=== PATIENT | male | born 1985 | race Caucasian/White ===

== ENCOUNTER 2025-11-23 16:47 | Emergency (ER) | payer OTHER ==
[~2025-11-23] VITALS: Ht 162.6 cm; Wt 84.0 kg
[2025-11-23 17:19] LABS: BASOPHILS 0.4 % (0.2-1.2); EOSINOPHILS 0.6 % (0.8-7.0); LYMPHOCYTES 10.1 % (21.8-53.1); MCH 28.4 PG (25.7-32.2); MCHC 33.5 g/dL (32.3-36.5); MCV 84.6 fL (79.0-92.2); MONOCYTES 7.1 % (5.3-12.2); NEUTROPHILS 81.4 % (34.0-67.9); RBC 5.78 M/uL (4.63-6.08)
[2025-11-23] MEDS ORDERED: SODIUM CHLORIDE 0.9% 1,000 ML IV ONE (17:45)
[2025-11-23 18:41] LABS: ALCOHOL, MEDICAL <3 mg/dL (<3); ALT (SGPT) 130 U/L (14-59); AST (SGOT) 34 U/L (15-37); GLOMERULAR FILTRATION RATE,EST 94 mL/min (>60); PROTEIN, TOTAL 8.0 g/dL (6.4-8.2); TSH, 3RD GENERATION 1.145 uIU/mL (0.358-3.740); UREA NITROGEN 17 mg/dL (7-18)
[2025-11-23] MEDS ORDERED: HYDROXYZINE HCL25 MG PO (19:04)
[2025-11-23] MEDS ORDERED: AMITRIPTYLINE150 MG PO (19:04)
[2025-11-23] MEDS ORDERED: DOCUSATE SODIU250 MG PO (19:05)
[2025-11-23] MEDS ORDERED: LISINOPRIL10 MG PO (19:05)
[2025-11-23] MEDS ORDERED: LIPITOR10 MG PO (19:05)
[2025-11-23] MEDS ORDERED: MIRALAX119 GM PO (19:06)
[2025-11-23] MEDS ORDERED: VITAMIN D325 MCG PO (19:06)
--- NOTE | 2025-11-24 16:12 | EKG ---
[facility] [address] [place] [address] Signed Sinus tachycardia Abnormal QRS-T angle, consider primary T wave abnormality Abnormal ECG No previous ECGs available Confirmed by Alexandru Mayen DO ([id number]) on 11/24/2025 4:12:33 PM Electronically Signed By: ALEXANDRU MAYEN DO 11/24/25 1612 PATIENT NAME: KARL MARIE Electrocardiogram DATE OF : 87 PHYSICIAN: ALEXANDRU MAYEN DO REPORT #: [id number] REPORT IS CONFIDENTIAL AND NOT TO BE RELEASED WITHOUT AUTHORIZATION
== END 2025-11-23 22:00 | disposition home or self-care (01) ==
LOC: ED 16:47
PROVIDERS: Emergency Medicine
DX: T46.4X2A Poisoning by angiotensin-converting-enzyme inhibitors, intentional self-harm, initial encounter (principal); I10 Essential (primary) hypertension; Z79.899 Other long term (current) drug therapy
CPT/HCPCS: 36415; 80053; 80307; 84443; 85025; 93005; 93010; 99285; G0480; J7030